=== PATIENT | female | born 2000 | race Caucasian/White ===

== ENCOUNTER 2023-10-12 20:38 | Emergency (ER) | payer OTHER ==
[~2023-10-12] VITALS: Ht 165.1 cm; Wt 108.9 kg
[2023-10-12] MEDS: NS 1,000 ML IV ONE ×2 (21:10→22:15)
[2023-10-12 21:37] LABS: BASO % 0.2 % (0.0-1.0); EOS # 0.1 10^3/uL (0.0-0.5); EOS % 0.6 % (0.0-3.0); HEMATOCRIT 36.2 % (36.0-47.0); HEMOGLOBIN 12.3 g/dl (12.0-15.5); LYMPH # 2.3 10^3/uL (1.5-5.0); LYMPH % 18.8 % (24.0-44.0); MEAN CORPUSCULAR HEMOGLOBIN 28.9 pg (27.0-33.0); MEAN CORPUSCULAR VOLUME 85.2 fl (80.0-96.0); MONO # 0.7 10^3/uL (0.0-0.8); MONO % 5.9 % (2.0-8.0); NEUTROPHILS % 73.8 % (36.0-66.0); PLATELET COUNT, AUTOMATED 338 10^3/uL (150-450); RED BLOOD COUNT 4.25 10^6/uL (4.00-5.40); WHITE BLOOD COUNT 12.2 10^3/uL (4.0-10.0)
[2023-10-12 21:50] LABS: CK-MB VALUE MASS < 1.0 NG/ML (<3.6)
[2023-10-12 21:52] LABS: ALBUMIN 2.7 G/DL (3.2-5.2); ALKALINE PHOSPHATASE 60 U/L (46-116); ALT/SGPT 26 U/L (7.0-40); AST/SGOT 25 U/L (<34); BILIRUBIN,DIRECT < 0.1 MG/DL (<0.4); BILIRUBIN,TOTAL 0.3 MG/DL (0.3-1.2); BLOOD UREA NITROGEN 9 MG/DL (9-23); CALCIUM LEVEL 9.1 MG/DL (8.5-10.1); CARBON DIOXIDE LEVEL 18 MMOL/L (20-31); CHLORIDE LEVEL 109 MMOL/L (98-107); CREATININE FOR GFR 0.61 MG/DL (0.55-1.30); GLOMERULAR FILTRATION RATE > 60.0 (>60); GLUCOSE, FASTING 131 MG/DL (60-100); MAGNESIUM LEVEL 1.6 MG/DL (1.8-2.4); POTASSIUM SERUM 4.2 MMOL/L (3.5-5.1); SODIUM LEVEL 137 MMOL/L (136-145)
[2023-10-12 21:54] LABS: CPK CREATINE PHOSPHOKINASE 51 U/L (34-145); MB/CK RELATIVE INDEX 1.96 (< OR =4)
[2023-10-12 23:17] LABS: CK-MB VALUE MASS < 1.0 NG/ML (<3.6)
[2023-10-12 23:19] LABS: CPK CREATINE PHOSPHOKINASE 34 U/L (34-145); MB/CK RELATIVE INDEX 2.94 (< OR =4)
[2023-10-12 23:52] LABS: TOTAL PROTEIN,RANDOM URINE 19.1 MG/DL (0.0-14.0)
[2023-10-12 23:57] LABS: CREATININE,RANDOM URINE 153.6 MG/DL
[2023-10-13] MEDS ORDERED: ISOVUE-370 76% 100ML VIAL As Ordered ONE (00:40)
[2023-10-13 01:18] VITALS: BP 146/86; TEMP 98; O2SAT 98
== END 2023-10-13 03:08 | disposition home or self-care (01) ==
LOC: M ED 20:38
DX: O99.512 Diseases of the respiratory system complicating pregnancy, second trimester (principal); Z3A.22 22 weeks gestation of pregnancy; R06.00 Dyspnea, unspecified; J98.11 Atelectasis; R00.0 Tachycardia, unspecified; Z88.0 Allergy status to penicillin
CPT/HCPCS: 71045; 71275; 80048; 80076; 81001; 82550; 82553; 82570; 83735; 84156; 84484; 85025; 85384; 87086; 93005; 93041; 93970; 94760; 96360; 96361; 99284; Q9967

== ENCOUNTER 2024-01-19 08:53 | Emergency (ER) | payer OTHER ==
[2024-01-19] MEDS ORDERED: LEVO50TA5 PO (09:28)
[2024-01-19] MEDS ORDERED: ASPI1CHW2 PO (09:28)
[2024-01-19] MEDS ORDERED: PRENTAB9 PO (09:28)
[2024-01-19] MEDS ORDERED: FERR324T21 PO (12:34)
== END 2024-01-19 09:00 | disposition admitted as inpatient to this hospital (09) ==
LOC: M ED 08:53
DX: Z53.21 Procedure and treatment not carried out due to patient leaving prior to being seen by health care provider (principal)

== ENCOUNTER 2024-01-19 09:00 | Outpatient (CLI) | payer OTHER ==
[~2024-01-19] VITALS: Ht 165.1 cm; Wt 114.3 kg
[2024-01-19] MEDS ORDERED: PRENTAB9 PO (09:28)
[2024-01-19] MEDS ORDERED: LEVO50TA5 PO (09:28)
[2024-01-19] MEDS ORDERED: ASPI1CHW2 PO (09:28)
[2024-01-19 09:31] VITALS: BP 106/56; O2SAT 94
[2024-01-19 10:32] VITALS: BP 117/58
[2024-01-19 10:36] LABS: APPEARANCE, URINE CLOUDY (CLEAR); BACTERIA, URINE AUTO 1+ (NEGATIVE); BILIRUBIN, URINE AUTO NEGATIVE (NEGATIVE); BLOOD, URINE BLOOD NEGATIVE (NEGATIVE); COLOR, URINE YELLOW (YELLOW); GLUCOSE, URINE (UA) AUTO NEGATIVE (NEGATIVE); KETONE, URINE AUTO NEGATIVE (NEGATIVE); LEUKOCYTE ESTERASE, URINE AUTO TRACE (NEGATIVE); MUCUS, URINE SMALL (NEGATIVE); NITRITE, URINE AUTO NEGATIVE (NEGATIVE); PROTEIN, URINE AUTO NEGATIVE (NEGATIVE); RBC, URINE AUTO 2 /HPF (0-3); SPECIFIC GRAVITY URINE AUTO 1.017 (1.002-1.035); SQUAMOUS EPITHELIAL CELL UR AU 19 /HPF (0-6); UROBILINOGEN, URINE AUTO 0.2 mg/dL (0.0-2.0); WBC, URINE AUTO 5 /HPF (0-3)
[2024-01-19 10:47] LABS: BASO % 0.3 % (0.0-1.0); EOS # 0.1 10^3/uL (0.0-0.5); EOS % 0.6 % (0.0-3.0); HEMATOCRIT 30.7 % (36.0-47.0); HEMOGLOBIN 9.7 g/dl (12.0-15.5); LYMPH # 2.2 10^3/uL (1.5-5.0); LYMPH % 20.3 % (24.0-44.0); MEAN CORPUSCULAR HEMOGLOBIN 25.9 pg (27.0-33.0); MEAN CORPUSCULAR HGB CONC 31.6 g/dl (32.0-36.5); MEAN CORPUSCULAR VOLUME 81.9 fl (80.0-96.0); MONO # 0.8 10^3/uL (0.0-0.8); MONO % 7.1 % (2.0-8.0); NEUTROPHILS # 7.6 10^3/uL (1.5-8.5); PLATELET COUNT, AUTOMATED 295 10^3/uL (150-450); RED BLOOD COUNT 3.75 10^6/uL (4.00-5.40); WHITE BLOOD COUNT 10.7 10^3/uL (4.0-10.0)
[2024-01-19 11:11] LABS: ALBUMIN 2.2 G/DL (3.2-5.2); ALKALINE PHOSPHATASE 107 U/L (35-104); ALT/SGPT 32 U/L (7.0-40); AST/SGOT 14 U/L (<34); BILIRUBIN,TOTAL 0.3 MG/DL (0.3-1.2); BLOOD UREA NITROGEN 7 MG/DL (9-23); CARBON DIOXIDE LEVEL 20 MMOL/L (20-31); CHLORIDE LEVEL 110 MMOL/L (98-107); CREATININE FOR GFR 0.64 MG/DL (0.55-1.30); GLOMERULAR FILTRATION RATE > 60.0 (>60); GLUCOSE, FASTING 93 MG/DL (60-100); POTASSIUM SERUM 3.8 MMOL/L (3.5-5.1); SODIUM LEVEL 140 MMOL/L (136-145)
[2024-01-19] MEDS ORDERED: FERR324T21 PO (12:34)
== END 2024-01-19 12:10 | disposition home or self-care (01) ==
LOC: M LDO 09:00
PROVIDERS: ATTEND Advanced Practice Midwife
DX: O24.410 Gestational diabetes mellitus in pregnancy, diet controlled (principal); O99.013 Anemia complicating pregnancy, third trimester; O26.893 Other specified pregnancy related conditions, third trimester; O99.213 Obesity complicating pregnancy, third trimester; R10.11 Right upper quadrant pain; D50.9 Iron deficiency anemia, unspecified; E66.9 Obesity, unspecified; Z3A.36 36 weeks gestation of pregnancy
CPT/HCPCS: 36415; 59025; 80053; 81001; 85025; G0463

== ENCOUNTER 2024-11-29 14:58 | Emergency (ER) | payer OTHER ==
[~2024-11-29] VITALS: Ht 165.1 cm; Wt 107.8 kg
[~2024-11-29 14:58] MED LIST: ASPI1CHW2 PO; FERR324T21 PO; LEVO50TA5 PO; PRENTAB9 PO
[2024-11-29 15:00] VITALS: BP 150/100; TEMP 98.7; O2SAT 100
== END 2024-11-29 17:16 | disposition left against medical advice (07) ==
LOC: M ED 14:58
DX: Z53.21 Procedure and treatment not carried out due to patient leaving prior to being seen by health care provider (principal)